=== PATIENT | female | born 1970 | race Caucasian/White ===

== ENCOUNTER 2023-03-02 13:41 | Outpatient (REF) | payer OTHER, SELFPAY ==
--- NOTE | ~2023-03-02 | MM_ITS ---
EXAMINATION: MM SCREENING DIGITAL BREAST TOMOSYNTHESIS, BILATERAL CLINICAL INFORMATION: Screening. Asymptomatic. The lifetime risk of breast cancer based on the Tyrer-Cuzick Model is 9%. COMPARISON: Mammography: 03/11/2018, 01/28/2017, 07/18/2015 (baseline) TECHNIQUE: Digital breast tomosynthesis is performed in both the craniocaudal and mediolateral oblique views along with computer-aided detection (CAD). Synthesized 2D images are generated from the tomosynthesis. FINDINGS: There are scattered areas of fibroglandular density (ACR BI-RADS breast composition Category b). There is fine fibronodular parenchymal pattern similar to prior studies. No developing density or interval architectural abnormality or abnormal calcifications. The axilla and skin contours are unremarkable. No significant changes. MM/MM tomosynthesis screening BI IMPRESSION: No mammographic evidence of malignancy. ASSESSMENT: BI-RADS 1: Negative RECOMMENDATION: Routine annual mammography screening. This patient's information was entered into a reminder system with a target due date for their next mammogram.
== END 2023-03-02 13:42 | disposition home or self-care (01) ==
LOC: HO.MAMMO 13:41
PROVIDERS: PCP Family Medicine; Visit Provider Family Medicine
DX: Z12.31 Encounter for screening mammogram for malignant neoplasm of breast (principal)
CPT/HCPCS: 77063; 77067

== ENCOUNTER 2023-04-28 13:16 | Outpatient (REF) | payer OTHER, SELFPAY ==
[2023-04-28 17:05] LABS: Free T4 (Free Thyroxine) 1.52 ng/dL (0.71-1.85)
[2023-04-30 12:37] LABS: Thyroid Peroxidase Antibodies 432 IU/mL (<9)
== END 2023-04-28 13:17 | disposition home or self-care (01) ==
LOC: HO.HHCL 13:16
PROVIDERS: Visit Provider Family Medicine
DX: E03.9 Hypothyroidism, unspecified (principal)
CPT/HCPCS: 36415; 84439; 86376

== ENCOUNTER 2023-05-01 13:24 | Outpatient (REF) | payer OTHER, SELFPAY ==
[2023-05-01 17:13] LABS: Free T4 (Free Thyroxine) 1.61 ng/dL (0.71-1.85); Thyroid Stimulating Hormone 0.77 uIU/mL (0.32-4.0)
[2023-05-05 17:33] LABS: Thyroglobulin Antibodies 3 IU/mL (< or = 1)
== END 2023-05-01 13:25 | disposition home or self-care (01) ==
LOC: HO.HHCL 13:24
PROVIDERS: Visit Provider Family Medicine
DX: E03.9 Hypothyroidism, unspecified (principal)
CPT/HCPCS: 36415; 84439; 84443; 86800

== ENCOUNTER 2024-03-03 13:41 | Outpatient (REF) | payer OTHER, SELFPAY | END 2024-03-03 13:42 | disposition home or self-care (01) | LOC: HO.MAMMO 13:41 | PROVIDERS: PCP Family Medicine; Visit Provider Family Medicine | DX: Z12.31 Encounter for screening mammogram for malignant neoplasm of breast (principal) | CPT/HCPCS: 77063; 77067 ==

== ENCOUNTER → 2024-03-03 14:00 | Outpatient (BNV) | payer OTHER, SELFPAY | PROVIDERS: PCP Family Medicine; Visit Provider Radiology Diagnostic Radiology | DX: Z12.31 Encounter for screening mammogram for malignant neoplasm of breast (principal) | CPT/HCPCS: 77063; 77067 ==

== ENCOUNTER 2024-07-29 12:52 | Outpatient (REF) | payer OTHER, SELFPAY ==
[2024-07-29 16:40] LABS: Estimated Average Glucose 105 mg/dL; Hemoglobin A1C 124.7384 umol/L; Hemoglobin A1c % 5.3 % (<6.0); Total Hemoglobin (HGBA1C) 3608.9801 umol/L
[2024-07-29 16:47] LABS: Alanine Aminotransferase 9 U/L (0-31); Albumin Level 4.2 g/dL (3.5-5.0); Alkaline Phosphatase 62 U/L (39-117); Anion Gap 14 (12-20); Aspartate Amino Transferase 15 U/L (5-31); Blood Urea Nitrogen 13 mg/dL (9-16); Calcium 9.8 mg/dL (8.4-10.2); Carbon Dioxide 25 mmol/L (22-29); Chloride 106 mmol/L (96-108); Cholesterol 212 mg/dL (<200); Estimated Glomerular Filt Rate > 60; Glucose Random 97 mg/dL (60-115); HDL Cholesterol 57 mg/dL (>40); LDL Cholesterol Calculated 143 mg/dL (<100); Potassium 3.8 mmol/L (3.3-5.1); Sodium 141 mmol/L (135-145); Total Protein 7.8 g/dL (6.5-8.0); Triglycerides 64 mg/dL (<150)
[2024-07-29 17:06] LABS: Free T4 (Free Thyroxine) 1.56 ng/dL (0.71-1.85); Thyroid Stimulating Hormone 1.88 uIU/mL (0.32-4.0); Vitamin D 25-OH Total 63.9 ng/mL (>30)
[2024-07-29 18:44] LABS: Reflex LDLD? No
== END 2024-07-29 12:53 | disposition home or self-care (01) ==
LOC: HO.HHCL 12:52
PROVIDERS: Visit Provider Family Medicine
DX: I10 Essential (primary) hypertension (principal); E03.9 Hypothyroidism, unspecified; E78.5 Hyperlipidemia, unspecified; E55.9 Vitamin D deficiency, unspecified; Z13.1 Encounter for screening for diabetes mellitus
CPT/HCPCS: 36415; 80053; 80061; 82306; 83036; 84439; 84443

== ENCOUNTER 2024-08-04 10:05 | Outpatient (REF) | payer OTHER, SELFPAY ==
--- NOTE | ~2024-08-04 | XR_ITS ---
EXAMINATION: XR FINGER, RIGHT CLINICAL INFORMATION: Right thumb pain. COMPARISON: None available. TECHNIQUE: PA view of the right hand as well as oblique and lateral views of the right thumb. FINDINGS: Along the radial periphery of the trapezium, there is a small cortical fragment measuring up to 0.2 cm which could represent a tiny avulsion injury. Correlate for focal tenderness. No additional fracture or dislocation. No joint space narrowing or marginal osteophytes. No osseous erosion. XR/XR finger RT min 2V IMPRESSION: Small cortical fragment along the radial periphery of the trapezium which could represent a tiny avulsion injury. Correlate for focal tenderness. No additional fracture or dislocation. Electronically signed by: Rishi Nevarez MD 08/04/2024 12:07 PM EDT
== END 2024-08-04 10:06 | disposition home or self-care (01) ==
LOC: HO.HHCX 10:05
PROVIDERS: Visit Provider Family Medicine
DX: M79.644 Pain in right finger(s) (principal)
CPT/HCPCS: 73140

== ENCOUNTER 2025-05-04 13:21 | Outpatient (REF) | payer OTHER, SELFPAY ==
--- OUTSIDE RECORDS SUMMARY | 2025-05-04 13:51 | XMS_ITS | Clinical Summary ---
Author Organization [employer] Address [address] [facility] [address] [place] [address] Care Team Providers Care Attraction Attendant Name Role Phone Vanessa Granger MD Primary Care Provider [phone] Allergies No known active allergies Medications benztropine (Cogentin) 0.5 MG tablet Take 0.5 mg by mouth 2 times daily. 12/10/2022 Active risperiDONE (RisperDAL) 0.5 MG tablet TAKE 1 TABLET BY MOUTH TWICE DAILY. TAKE WITH 1mg DOSE. 12/10/2022 Active risperiDONE (RisperDAL) 1 MG tablet TAKE 1 TABLET BY MOUTH TWICE DAILY. TAKE WITH 0.5mg DOSE FOR 1.5mg TWICE DAILY. 12/10/2022 Active levothyroxine (Synthroid, Levoxyl) 88 MCG tabletIndication s:Hypothyroidism , unspecified type Take 1 tablet (88 mcg) by mouth Once per day. 90 tablet 3 08/02/2024 Active cholecalciferol (Vitamin D High Potency) 25 MCG (1000 UT) capsuleIndicatio ns:Low vitamin D level Take 1 capsule (25 mcg) by mouth Once per day. 90 capsule 3 08/02/2024 Active cetirizine (ZyrTEC) 10 MG tablet Take 1 tablet (10 mg) by mouth Once per day. 90 tablet 3 08/02/2024 Active fluticasone (Flonase) 50 MCG/ACT nasal spray INSTILL 1-2 SPRAYS IN EACH NOSTRIL ONCE DAILY IN THE MORNING SHAKE GENTLY. 16 g 5 08/02/2024 Active Active Problems Problem Noted Date Diagnosed Date Anxiety 07/11/2023 Assessment & Plan (08/02/2024 4:19 PM EDT): - pt attributes anxiety to elevated BP - she has Dx schizophrenia, and likely has JENNIFER Assessment & Plan (10/02/2023 7:41 PM EST): - pt attributes anxiety to elevated BP - she has Dx schizophrenia, and likely has JENNIFER Assessment & Plan (07/11/2023 6:38 PM EDT): - pt attributes anxiety to elevated BP - she has Dx schizophrenia, and likely has JENNIFER Dyslipidemia 07/11/2023 Overview (07/11/2023): - in a setting of risperidone use - 01/23/23 Total cholesterol 235; HDL 59; LDL 158; TG 74 - 10-year ASCVD risk by ACC/AHA guideline is < 7.5%; the benefit of statin therapy is uncertain - continue working on lifestyle modifications - annual screening Assessment & Plan (08/02/2024 4:20 PM EDT): - in a setting of risperidone use - Last lipid profile: 07/29/24 - 10-year ASCVD risk by ACC/AHA guideline is < 7.5%; the benefit of statin therapy is uncertain - continue working on lifestyle modifications - annual screening Assessment & Plan (03/15/2024 2:13 PM EDT): - in a setting of risperidone use - 01/23/23 Total cholesterol 235; HDL 59; LDL 158; TG 74 - 10-year ASCVD risk by ACC/AHA guideline is < 7.5%; the benefit of statin therapy is uncertain - continue working on lifestyle modifications - annual screening Assessment & Plan (10/02/2023 7:40 PM EST): - in a setting of risperidone use - 01/23/23 Total cholesterol 235; HDL 59; LDL 158; TG 74 - 10-year ASCVD risk by ACC/AHA guideline is < 7.5%; the benefit of statin therapy is uncertain - continue working on lifestyle modifications - annual screening Colon cancer screening 01/19/2023 Assessment & Plan (08/02/2024 4:19 PM EDT): -She declines colonoscopy -FOBT negative on 08/14/22 -continue annual FOBT or cologuard q2-3 years Assessment & Plan (10/02/2023 7:41 PM EST): -She declines colonoscopy -FOBT negative on 08/14/22 -continue annual FOBT or cologuard q2-3 years Assessment & Plan (07/11/2023 6:28 PM EDT): -She declines colonoscopy -FOBT negative on 08/14/22 -continue annual FOBT or cologuard q2-3 years Assessment & Plan (01/19/2023 8:53 AM EDT): -She declines colonoscopy -FOBT negative on 08/14/22 -continue annual FOBT or cologuard q2-3 years Hyperprolactinemia 01/12/2023 Assessment & Plan (08/02/2024 4:18 PM EDT): -04/02/21 Prolactin 66.2 (stable from 2019, and decreased from >100 from 2016, attributed to risperidone) Assessment & Plan (07/11/2023 6:47 PM EDT): -04/02/21 Prolactin 66.2 (stable from 2019, and decreased from >100 from 2016, attributed to risperidone) Assessment & Plan (01/12/2023 12:59 PM EDT): -04/02/21 Prolactin 66.2 (stable from 2019, and decreased from >100 from 2016, attributed to risperidone) -Will Recheck Elevated blood pressure read ing in office with diagnosis of hypertension 01/12/2023 Assessment & Plan (08/02/2024 4:18 PM EDT): Goal BP <140/90 per JNC-8 guideline, < 130/80 per ACC/AHA guideline, BP elevated today again -likely white-coat HTN, Yet untreated white-coat HTN is associated with higher cardiovascular risk and increased risk for developing sustained HTN -home BP has been normal -continue working on lifestyle modification -advised patient to check BP at home -follow up in 6 mo -will consider 24-hour BP monitor if home BP shows fluctuation Assessment & Plan (03/15/2024 2:11 PM EDT): Goal BP <140/90 per JNC-8 guideline, < 130/80 per ACC/AHA guideline, BP elevated today again -likely white-coat HTN, Yet untreated white-coat HTN is associated with higher cardiovascular risk and increased risk for developing sustained HTN -home BP has been normal -continue working on lifestyle modification -advised patient to check BP at home -follow up in 6 mo -will consider 24-hour BP monitor if home BP shows fluctuation Assessment & Plan (10/02/2023 7:38 PM EST): Goal BP <140/90 per JNC-8 guideline, < 130/80 per ACC/AHA guideline, BP elevated today again -likely white-coat HTN, Yet untreated white-coat HTN is associated with higher cardiovascular risk and increased risk for developing sustained HTN -home BP has been normal -continue working on lifestyle modification -advised patient to check BP at home -follow up in 6 mo -will consider 24-hour BP monitor if home BP shows fluctuation Assessment & Plan (07/11/2023 6:37 PM EDT): Goal BP <140/90 per JNC-8 guideline, < 130/80 per ACC/AHA guideline, BP elevated today again -likely white-coat HTN untreated white-coat HTN is associated with higher cardiovascular risk and increased risk for developing sustained HTN -continue working on lifestyle modification -advised patient to check BP at home -follow up in 3 mo via televisit -will consider 24-hour BP monitor if home BP shows fluctuation Assessment & Plan (01/12/2023 1:22 PM EDT): Goal BP <140/90, BP elevated today -likely white-coat HTN -continue working on lifestyle modification -advised patient to check BP at home -most recent TSH 2.48 on 04/02/21 -return for BP check in 2 mo -follow-up for chronic conditions in 4 mo unless a new problem arises Vitamin D deficiency 06/28/2018 Assessment & Plan (08/02/2024 6:14 AM EDT): Most recent vitamin D level was normal in Jul 2024 Continue Vitamin D 1000 IU daily Assessment & Plan (03/15/2024 2:12 PM EDT): 09/07/20 vitamin D 29 Continue Vitamin D 1000 IU daily Assessment & Plan (01/12/2023 12:58 PM EDT): 09/07/20 vitamin D 29 Continue Vitamin D 1000 IU daily Asthma 04/12/2015 Assessment & Plan (08/02/2024 4:18 PM EDT): Previously on ICS. Step-down therapy in 2015. Continue albuterol HFA prn. Assessment & Plan (07/11/2023 6:48 PM EDT): Previously on ICS. Step-down therapy in 2015. Continue albuterol HFA prn. Assessment & Plan (01/12/2023 12:57 PM EDT): Previously on ICS. Step-down therapy in 2015. Continue albuterol HFA prn. Allergic rhinitis 11/09/2014 Assessment & Plan (08/02/2024 4:19 PM EDT): Continue cetirizine 10 mg daily. Continue Flonase 50 mcg daily. Consider allergy / immunology referral if refractory to Singulair. Assessment & Plan (10/02/2023 7:41 PM EST): Continue cetirizine 10 mg daily. Continue Flonase 50 mcg daily. Consider allergy / immunology referral if refractory to Singulair. Assessment & Plan (01/12/2023 12:57 PM EDT): Continue cetirizine 10 mg daily. Continue Flonase 50 mcg daily. Consider allergy / immunology referral if refractory to Singulair. Schizophrenia 11/09/2014 Assessment & Plan (08/02/2024 4:19 PM EDT): -pt seems to have another Dx; pt has extreme anxiety (not paranoid) -Hx psych admission in 2013. -Current [facility] provider: N -Continue Risperdal and Benztropine -Continue current treatment plan per [facility] provider Assessment & Plan (03/15/2024 2:13 PM EDT): -pt seems to have another Dx; pt has extreme anxiety (not paranoid) -Hx psych admission in 2013. -Current [facility] provider: N -Continue Risperdal and Benztropine -Continue current treatment plan per [facility] provider Assessment & Plan (10/02/2023 7:40 PM EST): -pt seems to have another Dx; pt has extreme anxiety (not paranoid) -Hx psych admission in 2013. -Current [facility] provider: N -Continue Risperdal and Benztropine -Continue current treatment plan per [facility] provider Assessment & Plan (07/11/2023 6:38 PM EDT): -Hx psych admission in 2013. -Current [facility] provider: N -Continue Risperdal and Benztropine -Continue current treatment plan per [facility] provider Assessment & Plan (01/12/2023 12:56 PM EDT): -Hx psych admission in 2013. 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) - Last lab: 07/29/24 TSH 1.88 -Current replacement: Synthroid 88 mcg daily -Continue current replacement -Recheck thyroid function test in 6-12 mo or sooner if she develops any concerning sign and symptom Assessment & Plan (03/15/2024 2:12 PM EDT): - 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, 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) - Last lab: 05/01/23 TSH 0.77 -Current replacement: Synthroid 88 mcg daily -Continue current replacement -Recheck thyroid function test in 6-12 mo or sooner if she develops any concerning sign and symptom Assessment & Plan (10/02/2023 7:38 PM EST): - 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, 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) - Last lab: 05/01/23 TSH 0.77 -Current replacement: Synthroid 88 mcg daily -Continue current replacement -Recheck thyroid function test in 6-12 mo or sooner if she develops any concerning sign and symptom Assessment & Plan (07/11/2023 6:30 PM EDT): - 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, 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) - Last lab: 05/01/23 TSH 0.77 -Current replacement: Synthroid 88 mcg daily -Continue current replacement -Recheck thyroid function test in 6-12 mo or sooner if she develops any concerning sign and symptom Assessment & Plan (01/12/2023 12:58 PM EDT): -Last lab: 04/02/21 TSH 2.48 -Current replacement: Synthroid 88 mcg daily -Continue current replacement -Recheck thyroid function test since pt had weight loss, elevated BP, and tachycardia Encounters Date Type Department Care Team Description 02/15/2025 Telephone [facility] [address] [place] [phone] Vanessa Granger MD from Last 3 Months Immunizations Immunization Administration Dates Next Due Hep B, adult 03/12/2011,06/27/2010,05/23/2010 Influenza Injectable Quadriv alant Preservative Free IIV4 MDCK 07/16/2022,08/16/2021,07/27/2020 Influenza injectable quadriv alent IIV4 with preservative 07/25/2019,07/08/2018,07/18/2015 Influenza injectable quadriv alent preservative free 01/05/2017 Influenza, IIV3, injectable 08/07/2014, 9 Influenza, Split (incl. lila fied surface antigen) 09/03/2012 Influenza, seasonal, injecta ble, preservative free 07/29/2024 MMR 02/28/2019,10/19/2008 Moderna Covid-19 Vaccine 12+ 04/11/2022, 12/12/2021,03/05/2021,02/05 Moderna Covid-19 Vaccine 6+ Bivalent 11/17/2022 Pfizer Covid-19 Vaccine 12+ 07/29/2024, Pneumococcal Polysaccharide PPSV23 07/18/2015 TD (adult), 2 Lf tetanus tox oid, preservative free, adsorbed 12/20/2007 Tdap 02/28/2019 Varicella 10/19/2008 Social History Tobacco Use Types Packs/Day Years Used Date Smoking Tobacco: Never Passive Smoke Exposure: Never Smokeless Tobacco: Never Tobacco Cessation:Counseling Given: Not Answered Alcohol Answer Date Recorded Frequency of Alcohol Consumption Not on file 08/02/2024 Average Number of Drinks Not on file 024 Frequency of Binge Drinking Not on file 07/19 Score 0 08/02/2024 Depression Answer Date Recorded Patient Health Questionnaire-9 Score 0 08/02/2024 Patient Health Questionnaire-9 Score 0 08/02/2024 Last PHQ-9: Questionnaire Data Not on file 1 Housing Stability Answer Date Recorded What is your housing situation today? I have evelyn bateman 07/19/[address] you li ve. Do you have problems with any of the following? None of the above 07/19/2024 Food Insecurity Answer Date Recorded Within the past 12 months, y ou worried that your food would run out before you got money to buy more: Never True 07/19/2024 Within the past 12 months,th e food you bought just didn't last and you didn't have enough money to get more: Never True 10/2023 Transportation Answer Date Recorded In the past 12 months, has l ack of transportation kept you from medical appts, meetings, work or from getting things needed for daily living? No 07/19/2024 Utilities Answer Date Recorded In the past 12 months, has t he electric, gas, oil or water company threatened to shut off services in your home? No 07/19/2024 Depression Answer Date Recorded Patient Health Questionnaire-2 Score 0 08/02/2024 Internet Access Answer Date Recorded Internet Access Q1 Yes 07/19/2024 Internet Access Q2 Not on file 07/19/2024 Comments Unknown Sex and Gender Information Value Date Recorded Sex Assigned at Female 08/18/2022 10:18 AM EDT Legal Sex Female 10:18 AM EDT Gender Identity Female 08/18/2022 10:18 AM EDT Sexual Orientation Straight 08/18/2022 10 :18 AM EDT Last Filed Vital Signs Vital Sign Reading Time Taken Comments Blood Pressure 155/82 08/02/2024 2:38 PM EDT Pulse 95 08/02/2024 2:12 PM EDT Temperature 36.4 C (97.6 F) 08/02/2024 2:12 PM EDT Respiratory Rate 16 08/02/2024 2:12 PM EDT Oxygen Saturation 99% 08/02/2024 2:12 PM EDT Inhaled Oxygen Concentration - - Weight 61.2 kg (135 lb) 08/02/2024 2:12 PM EDT Height 161 cm (5' 3.39 ) 08/02/2024 2:12 PM EDT Body Mass Index 23.62 08/02/2024 2:12 PM EDT Plan of Treatment Upcoming Encounters Date Type Department Care Team (Late st Contact Info) Description 05/11/2025 3:15 PM EDT Office Visit [facility] [address] [place] [phone] Alisson Francois, OD [address] [place] [address] Health Maintenance Due Date Last Done Comments CT Colonography 1972 Colonoscopy 1972 Colorectal Cancer Screening 1972 FIT DNA/Cologuard 1972 FIT 1972 FOBT 1972 Sigmoidoscopy 1972 Disability Screening 1972 Pap Smear 1993 HPV/Cotest 2002 Pneumococcal Vaccine: 50+ Years (2 of 2 - PCV) 07/18/2016 07/18/2015 Zoster Vaccines (1 of 2) 2022 Influenza Vaccine (#1) 2025 , 07/16/2022, 08/16/2021, Additional history exists SDOH Screening 07/19/2025 07/19/2024 Alcohol/Substance Use Screening 08/02/2025 08/02/2024 Depression Screening 08/02/2025 08/02/2024, 08/02/20 24 Tobacco Screening 08/02/2025 08/02/2024 Mammogram 03/03/2026 03/03/2024, 02/16, 03/12/2018 DTaP/Tdap/Td Vaccines (2 - Td or Tdap) 02/28/2029 02/28/2019, 12/20/2007 Lipid Panel 07/29/2029 07/29/2024, 01/23/2023 RSV Patients and Patients Aged 60 years or older (1 - 1-dose 75+ series) 2047 Hepatitis B Vaccines Completed 03/12/2011, 06/27/2010, 05/23/2010 COVID-19 Vaccine Completed 07/29/2024, , 11/17/2022, Additional history exists Cervical Cancer Screening Discontinued HIB Vaccines Aged Out No longer eligi ble based on patient's age to complete this topic HIV Screening Discontinued HPV Vaccines Aged Out No longer eligi ble based on patient's age to complete this topic Hepatitis A Vaccines Aged Out No long er eligible based on patient's age to complete this topic Hepatitis C Screening Discontinued IPV Vaccines Aged Out No longer eligi ble based on patient's age to complete this topic Meningococcal B Vaccine Aged Out No l onger eligible based on patient's age to complete this topic Meningococcal Vaccine Aged Out No charlene graciela eligible based on patient's age to complete this topic RSV under 20 months Aged Out No longe r eligible based on patient's age to complete this topic Rotavirus Vaccines Aged Out No longer eligible based on patient's age to complete this topic Procedures Procedure Name Priority Date/Time Associated Diagnosis Comments LIPID PANEL WITH REFLEX TO DIRECT LDL Routine 07/29/2024 12:53 PM EDT Dyslipidemia BI MAMMOGRAM SCREENING TOMOSYNTHESIS BILATERAL Routine 03/03/2024 2:36 PM EDT from Last 3 Months or Most Recently Relevant to Health Maintenance Results * (ABNORMAL) Lipid Panel with Reflex to Direct LDL (07/29/2024 12:53 PM EDT) Triglycerides 64 <150 mg/dL [facility] Comment:Desirable Triglyceri de: less than 150 mg/dLBorderline High Triglyceride 150-199 mg/dLHigh Triglyceride: 200-499 mg/dLVery High Triglyceride: greater than or equal to 5OO mg/dL Cholesterol 212(H) <200 mg/dL [facility] Comment:Desirable Cholestero l: less than 200 mg/dLBorderline High Cholesterol: 200-239 mg/dLHigh Cholesterol: greater than 239 mg/dL LDL Cholesterol Calculated 143(H) <100 mg/dL [facility] Comment:Desirable LDL: less than 100 mg/dLNear Optimal/Above Optimal LDL: 110- 129 mg/dLBorderline High LDL: 130-159 mg/dLHigh LDL: 160-189 mg/dLVery High LDL: greater than or equal to 190 mg/dL HDL Cholesterol 57 >40 mg/dL [facility] Comment:Desirable HDL: great er than 40 mg/dL Note: This HDL assay may give artificially low results in patients with liver disease. Blood 07/29/2024 12:5 3 PM EDT 07/29/2024 4:18 PM EDT us Vanessa Granger MD LAB BLOOD ORDERABLES Final Resul t [facility] [address] [place] [phone] * BI Mammogram Screening Tomosynthesis Bilateral (03/03/2024 2:36 PM EDT) Anatomical Region Laterality Modality Breast Bilateral Mammography 03/03/2024 2:36 PM EDT Narrative 04/04/2024 7:44 AM EDT [facility] [address] [place] [address] Mammography Report Signed Patient: Jade Antunez MR#: [id number] : 1970 Acct:[id number] Age/Sex: 53 / F ADM Date: 03/03/24 Loc: [facility] Attending Dr: Vanessa Granger MD Ordering Physician: Vanessa Granger MD Results: 1Negative Date of Service: 03/03/24 Follow Up: 1 Year From [facility] ina Mammogram Procedure(s): MM tomosynthesis screening BI Accession Number(s): [id number] cc: Vanessa Granger MD EXAMINATION: MM SCREENING DIGITAL BREAST TOMOSYNTHESIS, BILATERAL CLINICAL INFORMATION: Screening. Asymptomatic. COMPARISON: Mammography: This study is compared with prior exams dating back to 2017. TECHNIQUE: Digital breast tomosynthesis is performed in both the craniocaudal and mediolateral oblique views along with computer-aided detection (CAD). Synthesized 2D images are generated from the tomosynthesis. FINDINGS: There are scattered areas of fibroglandular density (ACR BI-RADS breast composition Category b). There are no significant masses, abnormal calcifications, or other abnormalities. MM/MM tomosynthesis screening BI IMPRESSION: No mammographic evidence of malignancy. ASSESSMENT: BI-RADS BI-RADS 1 - Negative RECOMMENDATION: Routine annual mammography screening. 1 year F/U This examination should not preclude the clinical evaluation of a suspicious palpable abnormality. This patient's information was entered into a reminder system with a target due date for their next mammogram. Dictated By: Ivelisse Carbajal MD Signed By: <Electronically signed by Ivelisse Carbajal MD in OV> 04/04/24 0740 DD/ 1436 TD/TT: [employer] Wire Finisher: Procedure Note Donotuseinterpreter, Image - 04/04/2024 [place] [facility] [address] [place] [address] Mammography Report Signed Patient: Jade AntunezMR#: [id number] : 1970Acct:[id number] Age/Sex: 53 / FADM Date: 03/03/24 Loc: [facility] Attending Dr: Vanessa Granger MD Ordering Physician: Vanessa Granger MDResults: 1Negative Date of Service: 03/03/24Follow Up: 1 Year From [facility] ina Mammogram Procedure(s): MM tomosynthesis screening BI Accession Number(s): [id number] cc: Vanessa Granger MD EXAMINATION: MM SCREENING DIGITAL BREAST TOMOSYNTHESIS, BILATERAL CLINICAL INFORMATION: Screening. Asymptomatic. COMPARISON: Mammography: This study is compared with prior exams dating back to 2017. TECHNIQUE: Digital breast tomosynthesis is performed in both the craniocaudal and mediolateral oblique views along with computer-aided detection (CAD). Synthesized 2D images are generated from the tomosynthesis. FINDINGS: There are scattered areas of fibroglandular density (ACR BI-RADS breast composition Category b). There are no significant masses, abnormal calcifications, or other abnormalities. MM/MM tomosynthesis screening BI IMPRESSION: No mammographic evidence of malignancy. ASSESSMENT: BI-RADS BI-RADS 1 - Negative RECOMMENDATION: Routine annual mammography screening. 1 year F/U This examination should not preclude the clinical evaluation of a suspicious palpable abnormality. This patient's information was entered into a reminder system with a target due date for their next mammogram. Dictated By: Ivelisse Carbajal MD Signed By: <Electronically signed by Ivelisse Carbajal MD in OV> 04/04/24 0740 DD/ 1436 TD/TT: Asbestos Wire Finisher: Vanessa Granger MD IMG BI PROCEDURES Final Result from Last 3 Months or Most Recently Relevant to Health Maintenance Insurance [facility] ONE CARE < [address] [place] [id number] Care Teams Attraction Attendant Relationship Specialty Start Date End Date Vanessa Granger MD [address] [place] [id number] PCP - General Family Medicine 08/07/14
== END 2025-05-04 13:22 | disposition home or self-care (01) ==
LOC: HO.MAMMO 13:21
PROVIDERS: PCP Family Medicine; Visit Provider Family Medicine
DX: Z12.31 Encounter for screening mammogram for malignant neoplasm of breast (principal)
CPT/HCPCS: 77063; 77067

== ENCOUNTER → 2025-05-04 14:45 | Outpatient (BNV) | payer OTHER, SELFPAY | PROVIDERS: PCP Family Medicine; Visit Provider Internal Medicine | DX: Z12.31 Encounter for screening mammogram for malignant neoplasm of breast (principal) | CPT/HCPCS: 77063; 77067 ==

== ENCOUNTER 2025-08-10 13:38 | Outpatient (REF) | payer OTHER, SELFPAY ==
[2025-08-10 16:20] LABS: Total Hemoglobin (HGBA1C) 3678.2307 umol/L
[2025-08-10 16:58] LABS: Alanine Aminotransferase 12 U/L (0-31); Albumin Level 4.4 g/dL (3.5-5.0); Alkaline Phosphatase 71 U/L (39-117); Anion Gap 13 (12-20); Aspartate Amino Transferase 17 U/L (5-31); Blood Urea Nitrogen 11 mg/dL (9-16); Calcium 9.1 mg/dL (8.4-10.2); Carbon Dioxide 26 mmol/L (22-29); Chloride 108 mmol/L (96-108); Cholesterol 225 mg/dL (<200); Estimated Glomerular Filt Rate > 60; HDL Cholesterol 55 mg/dL (>40); Potassium 3.8 mmol/L (3.3-5.1); Sodium 143 mmol/L (135-145); Total Protein 8.0 g/dL (6.5-8.0); Triglycerides 68 mg/dL (<150)
--- OUTSIDE RECORDS SUMMARY | 2025-08-10 17:34 | XMS_ITS | Encounter Summary ---
Author Organization [employer] Address [address] [place] [address] 7[address] [place] [address] Care Team Providers Care High Energy Forming Equipment Operator Name Role Phone Vanessa Granger MD Primary Care Provider [phone] Encounter Details Date Type Department Care Team (Late st Contact Info) Description 12/22/2022 Orders Only [facility] MED & PEDS [address] [place] [address] Suyapa Trejo LPN Social History Tobacco Use Types Packs/Day Years Used Date Smoking Tobacco: Never Assessed Comments Unknown Sex and Gender Information Value Date Recorded Sex Assigned at Female 08/18/2022 10:18 AM EDT Legal Sex Female 10:18 AM EDT Gender Identity Female 08/18/2022 10:18 AM EDT Sexual Orientation Straight 08/18/2022 10 :18 AM EDT documented as of this encounter Plan of Treatment Upcoming Encounters Date Type Department Care Team (Late st Contact Info) Description 08/14/2025 2:30 PM EDT Office Visit [facility] MEDICINE [address] [place] [address] Vanessa Granger MD [address] [place] [address] documented as of this encounter Visit Diagnoses Not on filedocumented in this encounter Care Teams High Energy Forming Equipment Operator Relationship Specialty Start Date End Date Vanessa Granger MD [address] [place], [place] [phone] PCP - General Family Medicine 08/07/14 documented as of this encounter
--- OUTSIDE RECORDS SUMMARY | 2025-08-10 17:34 | XMS_ITS | Encounter Summary ---
Author Organization [employer] Address [address] [facility] 7t [place] [address] Care Team Providers Care Cycle Analyst Name Role Phone Vanessa Granger MD Primary Care Provider [phone] Encounter Details Date Type Department Care Team (Late Contact Info) Description 12/01/2022 Orders Only [facility] CH[facility] MED & PEDS [address] [place] [address] Suyapa Trejo LPN Social History Tobacco Use Types Packs/Day Years Used Date Smoking Tobacco: Never Assessed Comments Unknown Sex and Gender Information Value Date Recorded Sex Assigned at Female 08/18/2022 10:18 AM EDT Legal Sex Female 10:18 AM EDT Gender Identity Female 08/18/2022 10:18 AM EDT Sexual Orientation Straight 08/18/2022 10 :18 AM EDT COVID-19 Exposure Response Date Recorded In the last 10 days, have yo u been in contact with someone who was confirmed or suspected to have Coronavirus/COVID-19? No / Unsure 11/17/2022 1:35 PM EST documented as of this encounter Plan of Treatment Upcoming Encounters Date Type Department Care Team (Late st Contact Info) Description 08/14/2025 2:30 PM EDT Office Visit [facility] MEDICINE [address] [place] [address] Vanessa Granger MD [address] [place] [address] documented as of this encounter Visit Diagnoses Not on filedocumented in this encounter Care Teams Cycle Analyst Relationship Specialty Start Date End Date Vanessa Granger MD [address] [place] [address] PCP - General Family Medicine 08/07/14 documented as of this encounter
--- OUTSIDE RECORDS SUMMARY | 2025-08-10 17:34 | XMS_ITS | Clinical Summary ---
Author Organization [employer] Address [address] [facility] 7[address] [place] [address] Care Team Providers Care Brushing Machine Operator Name Role Phone Vanessa Granger MD Primary Care Provider [phone] Allergies No known active allergies Medications benztropine [...] paranoid) -Hx psych admission in 2013. -Current [facility] provider: N -Continue Risperdal and Benztropine -Continue current treatment plan per [facility] provider Assessment & Plan (03/15/2024 2:13 PM EDT): -pt seems to have another Dx; pt has extreme anxiety (not paranoid) -Hx psych admission in 2013. -Current [facility] provider: N -Continue Risperdal and Benztropine -Continue current treatment plan per [facility] provider Assessment & Plan (10/02/2023 7:40 PM EST): -pt seems to have another Dx; pt has extreme anxiety (not paranoid) -Hx psych admission in 2013. -Current [facility] provider: N -Continue Risperdal and Benztropine -Continue current treatment plan per [facility] provider Assessment & Plan (07/11/2023 6:38 PM EDT): -Hx psych admission in 2013. -Current [facility] provider: N -Continue Risperdal and Benztropine -Continue current treatment plan per [facility] provider Assessment & Plan (01/12/2023 12:56 PM EDT): -Hx psych admission in 2013. -Current [facility] provider: N -Continue Risperdal and Benztropine -Continue current treatment plan per [facility] provider Depressive disorder 05/18/2012 Hypothyroidism 05/18/2012 Assessment [...] Encounters Date Type Department Care Team Description 05/25/2025 3:45 PM EDT Office Visit [facility] OPTOMETRY [address] [place] [address] Alisson Francois, OD Thyroid eye disease (Primary Dx); Other disorders of optic disc, bilateral 05/25/2025 Travel 05/11/2025 3:15 PM EDT Office Visit [facility] [address] [place] [address] Alisson Francois, OD Thyroid eye disease (Primary Dx); 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; Myopia, bilateral 05/11/2025 Travel from Last 3 Months Immunizations Immunization Administration [...] Description 08/14/2025 2:30 PM EDT Office Visit [facility] MEDICINE [address] [place], [place] [phone] Vanessa Granger MD [address] [place] [address] Health Maintenance Due Date Last Done Comments CT Colonography 1972 Colonoscopy 1972 Colorectal Cancer Screening 1972 FIT DNA/Cologuard 1972 FIT 1972 FOBT 1972 Sigmoidoscopy 1972 Disability Screening 1972 Alcohol/Substance Use Screening 1984 Pap Smear 1993 HPV/Cotest 2002 Pneumococcal Vaccine: 50+ Years (2 of 2 - PCV) 07/18/2016 07/18/2015 Zoster Vaccines (1 of 2) 2022 Influenza Vaccine (#1) 2025 , 07/16/2022, 08/16/2021, Additional history exists SDOH Screening 07/19/2025 07/19/2024 Depression Screening 08/02/2025 08/02/2024, 08/02/20 24 Tobacco Screening 05/11/2026 05/11/2025 Mammogram 05/04/2027 05/04/2025, 02/16, 03/02/2023, Additional history exists DTaP/Tdap/Td Vaccines (2 - Td or Tdap) 02/28/2029 02/28/2019, 12/20/2007 Lipid Panel 08/10/2030 08/10/2025, 07/19, 01/23/2023 RSV Patients and Patients Aged 60 [...] Procedure Name Priority Date/Time Associated Diagnosis Comments VITAMIN D,25-OH,TOTAL,IA Routine 08/10/2025 1:47 PM EDT Low vitamin D level LIPID PANEL WITH REFLEX TO DIRECT LDL Routine 08/10/2025 1:47 PM EDT Dyslipidemia COMPREHENSIVE METABOLIC PANEL Routine 08/10/2025 1:47 PM EDT Elevated blood pressure reading in office with diagnosis of hypertension HEMOGLOBIN A1C Routine 08/10/2025 1:47 PM EDT Elevated blood pressure reading in office with diagnosis of hypertension TSH W/REFLEX TO FT4 Routine 08/10/2025 1 :47 PM EDT Hypothyroidism, unspecified type AUTOMATED VISUAL FIELD, EXTENDED - OU - BOTH EYES Routine 05/25/2025 3:45 PM EDT Thyroid eye disease OCT, OPTIC NERVE - OU - BOTH EYES Routine 05/11/2025 4:11 PM EDT Thyroid eye disease BI MAMMOGRAM SCREENING TOMOSYNTHESIS BILATERAL Routine 05/04/2025 1:30 PM EDT from Last 3 Months or Most Recently Relevant to Health Maintenance Results * Hemoglobin A1c (08/10/2025 1:47 PM EDT) Hemoglobin A1c 5.3 <6.0 % [facility] Comment:Hemoglobin A1C Refer ence Range Adults: 4.8 - 6.0 % Non diabetic: < 6.0 % Goal: < 7.0 %Additional Action Suggested: > 8.0 %Note: Hemoglobin A1c results are invalid for patients with abnormal amounts of HbF. Blood transfusions may impact the HbA1c concentration in the patient sample. Estimated Average Glucose 105 mg/dL [facility] Comment:eAG = Estimated ave rage glucose which is %A1C expressed asaverage glucose, using the formula of the Z0S-OwzcmviGjytqik Glucose study (ADAG), Diabetes Care, Vol.31,#8,May. 2007 Blood Venous blood specimen / Unknown 08/10/2025 1:47 PM EDT 08/10/2025 4:00 PM EDT us Vanessa Granger MD LAB BLOOD ORDERABLES Final Resul t [facility] [address] [place] [address] [phone] * Automated Visual Field, Extended - OU - Both Eyes (05/25/2025 3:45 PM EDT) Narrative Alisson Francois, OD - 06/07/2025 3:35 PM EDT VISUAL FIELD INTERPRETATION 30-2 pulsar visual field testing for thyroid eye disease & tilted optic nerve OD>OS Right eye (OD): Reliable (0/7 FP, 0/8 FN) MD: 5.6 dB, PSD: 2.0 dB Findings: 2 defects superior nasal that could correspond to inferior temporal ganglion cell layer (GCL) thinning. 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 No structural correlation. Impression: Some defects present on visual field testing both eyes (OU) however low suspicion for thyroid related optic neuropathy given robust RNFL and pink rim tissue 360. Defects may be related to tilted discs and/or retinal changes related to high myopia. Monitor. us Alisson Francois OD OPHTH VISUAL FIELD Final Result * OCT, Optic Nerve - OU - Both Eyes (05/11/2025 4:11 PM EDT) Narrative Alisson Francois, OD - 05/11/2025 4:11 PM EDT Images from the original result were not included. OCT OPTIC NERVE INTERPRETATION Reliability : OD: SS 42 - adequate reliability OS: SS 39 - reduced reliability due to PSC Measurements RNFL: Avg RNFL thickness OD: 91 microns OS: 94 microns Test findings RNFL: RNFL OD: Borderline thin RNFL at 7 o'clock only. Baseline. RNFL OS: Robust RNFL 360. Baseline. Test findings GCL: GCL OD: Thin ganglion cell layer (GCL) inferior temporal, borderline thin superior temporal. Baseline. GCL OS: Thin ganglion cell layer (GCL) inferior temporal, borderline thin superior temporal. Baseline. Impression and Plan: Some areas of thin ganglion cell layer (GCL) both eyes (OU). RTC for baseline visual field (VF) in 2 weeks. us Alisson Francois OD OPHTH TOMOGRAPHY Final Result * BI Mammogram Screening Tomosynthesis Bilateral (05/04/2025 1:30 PM EDT) Anatomical Region Laterality Modality Breast Bilateral Mammography 05/04/2025 1:30 PM EDT Narrative 05/15/2025 4:34 PM EDT [facility] [address] [place], [place] [address] Mammography Report Signed Patient: Jade Antunez MR#: [id number] : 1970 Acct:[id number] Age/Sex: 55 / F ADM Date: 05/04/25 Loc: TRA[facility] Attending Dr: Vanessa Granger MD Ordering Physician: Vanessa Granger MD Results: 1Negative Date of Service: 05/04/25 Follow Up: 1 Year From [facility] Mammogram Procedure(s): MM tomosynthesis screening BI Accession Number(s): [id number] cc: Vanessa Granger MD EXAMINATION: MM SCREENING DIGITAL BREAST TOMOSYNTHESIS, BILATERAL CLINICAL INFORMATION: Screening. Asymptomatic. COMPARISON: Mammography: Comparison is made with available priors TECHNIQUE: Digital breast mammography with tomosynthesis is performed in both the craniocaudal and mediolateral oblique views along with computer-aided detection (CAD). FINDINGS: There are scattered areas of fibroglandular [...] target due date for their next mammogram. Electronically signed by: Nelly Romero DO 05/15/2025 04:30 PM EDT Dictated By: Tyminski,Nelly DO Signed By: <Electronically signed by Nelly Romero DO in OV> 05/15/25 1630 DD/ 1330 TD/TT: 05/04/25 1420 Ethyl Blender: Procedure Note Donotrosiointerpreter, Image - [facility]/15/[facility] [address] [place], [place] [address] Mammography Report Signed Patient: Jade AntunezMR#: [id number] : 1970Acct:[id number] Age/Sex: 55 / FADM Date: 05/04/25 Loc: HO.MAMMO Attending Dr: Vanessa Granger MD Ordering Physician: Vanessa Grangeresults: 1Negative Date of Service: 05/04/25Follow Up: 1 Year From Orig inal Mammogram Procedure(s): MM tomosynthesis screening BI Accession Number(s): [id number] cc: Vanessa Granger MD EXAMINATION: MM SCREENING DIGITAL BREAST TOMOSYNTHESIS, BILATERAL CLINICAL INFORMATION: Screening. Asymptomatic. COMPARISON: Mammography: Comparison is made with available priors TECHNIQUE: Digital breast mammography with tomosynthesis is performed in both the craniocaudal and mediolateral oblique views along with computer-aided detection (CAD). FINDINGS: There are scattered areas of fibroglandular [...] target due date for their next mammogram. Electronically signed by: Nelly Romero DO 05/15/2025 04:30 PM EDT Dictated By: Nelly Romero DO Signed By: <Electronically signed by Nelly Romero DO in OV> 05/15/25 1630 DD/ 1330 TD/TT: 05/04/25 1420 Ethyl Blender: Vanessa Granger MD IMG BI PROCEDURES Final Result from Last 3 Months or Most Recently Relevant to Health Maintenance Insurance [place], [place] [facility] [employer] < 65 Care Teams Brushing Machine Operator Relationship Specialty Start Date End Date Vanessa Granger MD [address] [place] [phone] PCP - General Family Medicine 08/07/14
[2025-08-10 19:43] LABS: Reflex LDLD? No
== END 2025-08-10 13:39 | disposition home or self-care (01) ==
LOC: HO.HHCL 13:38
PROVIDERS: PCP Family Medicine; Visit Provider Family Medicine
DX: I10 Essential (primary) hypertension (principal); E78.5 Hyperlipidemia, unspecified; E03.9 Hypothyroidism, unspecified; R79.89 Other specified abnormal findings of blood chemistry
CPT/HCPCS: 36415; 80053; 80061; 82306; 83036; 84443